=== PATIENT | male | born 1965 | race Caucasian/White ===

== ENCOUNTER 2021-10-06 17:01 | Emergency (ER) | payer MEDICARE, OTHER ==
[2021-10-06 17:23] LABS: BASOPHIL 1.2 % (0-2); EOSINOPHIL 14.8 % (0-5); HGB 15.3 g/dl (13.2-18.0); LYMPHOCYTE 25.8 % (15-48); MCH 31.9 pg (25.0-31.0); MCHC 33.3 g/dL (32.0-36.0); MONOCYTE 7.9 % (0-12); MPV 10.1 fL (6.0-9.5); NRBC 0; PLT 210 K/uL (150-400); RBC 4.79 M/uL (4.70-6.00); RDW 13.1 % (11.5-14.0); WBC 7.5 K/uL (4.0-10.5)
[2021-10-06 17:41] LABS: INR 0.98 (0.9-1.2); PROTHROMBIN TIME 12.4 SECONDS (11.8-13.4)
[2021-10-06 17:42] LABS: PTT 36.9 SECONDS (24.4-34.7)
[2021-10-06 17:43] LABS: D-DIMER 0.32 ug/mLFEU (0.00-0.41)
[2021-10-06 17:46] LABS: ALBUMIN 3.7 g/dL (3.4-5.0); BILIRUBIN - TOTAL 0.2 mg/dL (0.2-1.0); BUN/CREAT RATIO (CALC) 15.7 RATIO; CREATININE 1.15 mg/dL (0.67-1.17); GLOBULIN (CALCULATION) 3.3 g/dL; POTASSIUM 4.2 mmol/L (3.5-5.1)
== END 2021-10-06 18:43 | disposition home or self-care (01) ==
LOC: FER 17:01
PROVIDERS: Emergency Medicine
DX: J44.1 Chronic obstructive pulmonary disease with (acute) exacerbation (principal); I10 Essential (primary) hypertension; Z79.899 Other long term (current) drug therapy
CPT/HCPCS: 36415; 36600; 71045; 80053; 82803; 83880; 84145; 84484; 85025; 85379; 85610; 85730; J2405